=== PATIENT | male | born 1985 | race Caucasian/White ===

== ENCOUNTER 2020-05-05 00:53 | Emergency (ER) | payer SELFPAY ==
[2020-05-05] MEDS ORDERED: LODINE CAP 300300 MG PO (03:01)
[2020-05-05] MEDS ORDERED: PERCOCET 5/325 T1 EA PO (03:21)
== END 2020-05-05 03:27 | disposition home or self-care (01) ==
LOC: ER1 00:53
DX: S62.002A Unspecified fracture of navicular [scaphoid] bone of left wrist, initial encounter for closed fracture (principal); V00.131A Fall from skateboard, initial encounter; Y93.51 Activity, roller skating (inline) and skateboarding; Y92.009 Unspecified place in unspecified non-institutional (private) residence as the place of occurrence of the external cause
CPT/HCPCS: 29125; 73080; 73110; 99283